=== PATIENT | female | born 1940 | race Caucasian/White ===

== ENCOUNTER 2018-03-05 14:00 | Outpatient (RCR) | payer MEDICARE, SELFPAY ==
--- NOTE | 2018-02-16 10:10 | HMH.PTOPEV ---
PT Outpatient Evaluation Rehab PT Outpatient Evaluation Start: 02/16/18 09:52 Freq: Status: Active Protocol: Document 02/16/18 09:52 CHARISSA (Rec: 02/16/18 10:08 CHARISSA [id number]) Electronically Signed By Jon Calderon, PT 02/16/18 09:52 Outpatient Therapy Subjective History Subjective History Patient is a 77 year old female presenting to outpatient PT with reports of L hip pain S/P L RUBY revision posterior approach on 02/01/18. Initial RUBY was performed 2017. Pt reports constant pain and leg length descrepancy after initial surgery. Surgery was performed in [place], [place] and patient traveled to [place] to stay with caregiver for rehab. See chart for medication/ comorbidities. Chief Complaint Pain Stiff Weakness Symptom Type Ache Sharp Dull Symptoms Relieved By Rest/Positioning Ice Prescription Meds Symptoms Aggravated By Sitting Standing Bending/Stooping Physical Activity Walking Prior Functional Limitations Reaching Lifting Housework Driving Sleeping Standing Sitting Squatting Recreation Activity Walking Stairs Balance Bending/Stooping Current Functional Limitations Reaching Lifting Housework Driving Sleeping Standing Sitting Squatting Recreation Activity Walking Stairs Balance B
== END 2018-03-05 14:01 | disposition home or self-care (01) ==
LOC: PT 14:00
PROVIDERS: Visit Provider Nurse Practitioner Family
DX: Z96.642 Presence of left artificial hip joint (principal)
CPT/HCPCS: 97010; 97014; 97110; 97116; 97140; 97163; G0283

== ENCOUNTER 2018-08-20 10:00 | Outpatient (RCR) | payer MEDICARE, SELFPAY | END 2018-08-20 10:05 | disposition home or self-care (01) | LOC: PT 10:00 | DX: Z96.642 Presence of left artificial hip joint (principal) | CPT/HCPCS: 97010; 97014; 97110; 97112; 97140; 97163; G0283 ==

== ENCOUNTER 2019-04-02 11:00 | Outpatient (RCR) | payer MEDICARE, SELFPAY | END 2019-04-02 11:05 | disposition home or self-care (01) | LOC: PT 11:00 | DX: M25.511 Pain in right shoulder (principal); M75.41 Impingement syndrome of right shoulder; Z96.642 Presence of left artificial hip joint | CPT/HCPCS: 97010; 97014; 97033; 97035; 97110; 97163; 97164; G0283 ==

== ENCOUNTER → 2020-03-25 13:15 | Outpatient (POV) | payer MEDICARE, SELFPAY | DX: Z00.00 Encounter for general adult medical examination without abnormal findings (principal) ==

== ENCOUNTER → 2020-06-10 09:48 | Outpatient (CLI) | payer MEDICARE, SELFPAY | PROVIDERS: PCP Family Medicine; Visit Provider Nurse Practitioner Family | DX: Z01.818 Encounter for other preprocedural examination (principal); Z20.822 Contact with and (suspected) exposure to COVID-19 | CPT/HCPCS: U0003 ==

== ENCOUNTER → 2020-06-30 10:54 | Outpatient (CLI) | payer MEDICARE, SELFPAY | PROVIDERS: PCP Family Medicine; Visit Provider Family Medicine | DX: Z01.818 Encounter for other preprocedural examination (principal); Z11.52 Encounter for screening for COVID-19 | CPT/HCPCS: U0003 ==

== ENCOUNTER → 2020-07-08 13:15 | Outpatient (POV) | payer MEDICARE, SELFPAY | DX: Z00.00 Encounter for general adult medical examination without abnormal findings (principal) ==

== ENCOUNTER → 2020-07-30 10:47 | Outpatient (CLI) | payer MEDICARE, SELFPAY | PROVIDERS: PCP Family Medicine | DX: Z01.818 Encounter for other preprocedural examination (principal); Z20.822 Contact with and (suspected) exposure to COVID-19; H25.12 Age-related nuclear cataract, left eye | CPT/HCPCS: U0003 ==

== ENCOUNTER → 2020-08-19 14:26 | Outpatient (POV) | payer MEDICARE, SELFPAY | DX: Z00.00 Encounter for general adult medical examination without abnormal findings (principal) ==

== ENCOUNTER → 2020-09-16 14:00 | Outpatient (POV) | payer MEDICARE, SELFPAY | DX: Z00.00 Encounter for general adult medical examination without abnormal findings (principal) ==

== ENCOUNTER → 2020-11-25 14:30 | Outpatient (POV) | payer MEDICARE, SELFPAY | DX: Z00.00 Encounter for general adult medical examination without abnormal findings (principal) ==